=== PATIENT | male | born 1950 | race Caucasian/White ===

== ENCOUNTER 2017-06-30 19:36 | Emergency (ER) | payer MEDICARE, OTHER ==
[~2017-06-30] VITALS: Ht 182.9 cm; Wt 92.5 kg
[~2017-06-30 19:36] MED LIST: ZES20 PO
[2017-06-30 20:15] VITALS: BP 119/73; Ht 182.9 cm; Wt 92.5 kg
== END 2017-06-30 20:46 | disposition home or self-care (01) ==
LOC: ED 19:36
DX: K52.9 Noninfective gastroenteritis and colitis, unspecified (principal)

== ENCOUNTER → 2017-08-30 | Outpatient (CLI) | payer OTHER | END | disposition home or self-care (01) | LOC: US | PROC: B54DZZZ Ultrasonography of Bilateral Lower Extremity Veins (ICD-10-PCS; principal; 2017-08-30) | DX: M79.89 Other specified soft tissue disorders (principal) ==

== ENCOUNTER 2020-02-20 17:53 | Emergency (ER) | payer OTHER ==
[~2020-02-20] VITALS: Ht 182.9 cm; Wt 93.9 kg
[2020-02-20 18:12] VITALS: Ht 182.9 cm; Wt 93.9 kg
[2020-02-20 19:33] LABS: BASOPHIL % 0.5 % (0-2); PLATELET COUNT 170 x10^3mcL (130-400); RED CELL DISTRIBUTION WIDTH 14.3 % (11.5-14.5)
[2020-02-20 19:39] LABS: CALCIUM 8.4 mg/dL (8.5-10.1); CARBON DIOXIDE 26.5 mmol/L (21-32); CHLORIDE SERUM 103 mmol/L (98-107); CREATININE SERUM 0.7 mg/dL (0.7-1.3); GFR1 > 60 mL/min; GLUCOSE SERUM 152 mg/dL (74-106); POTASSIUM SERUM 3.8 mmol/L (3.5-5.1); SODIUM SERUM 133 mmol/L (136-145)
[2020-02-20 19:40] LABS: C REACTIVE PROTEIN 0.7 mg/dL (<=0.9)
[2020-02-20 20:46] VITALS: BP 137/77
== END 2020-02-20 20:46 | disposition home or self-care (01) ==
LOC: ED 17:53
PROVIDERS: Emergency Medicine
DX: L97.819 Non-pressure chronic ulcer of other part of right lower leg with unspecified severity (principal); E78.5 Hyperlipidemia, unspecified; I10 Essential (primary) hypertension; E11.9 Type 2 diabetes mellitus without complications; Z85.038 Personal history of other malignant neoplasm of large intestine
CPT/HCPCS: 90715